=== PATIENT | female | born 1965 | race Caucasian/White ===

== ENCOUNTER 2023-11-16 11:15 | Inpatient (IN) | payer SELFPAY ==
[~2023-11-16] VITALS: Ht 160 cm; Wt 68.0 kg
[2023-11-16 11:18] VITALS: TEMP 36.55848; O2SAT 98
[2023-11-16 11:22] VITALS: BP 127/75; PULSE 115; RESP 40; O2SAT 100
[2023-11-16] MEDS ORDERED: HEPARIN 1000 UNITS/ML 10ML ONE (11:33)
[2023-11-16] MEDS ORDERED: LIDOCAINE HCL 1% 10 MG/ML 10ML VIAL ONE (11:33)
[2023-11-16] MEDS ORDERED: IODIXANOL 320 MG/ML 150ML BOTTLE IV ONE (11:33)
[2023-11-16] MEDS ORDERED: EPINEPHRINE 0.1MG/ML (1:10,000) 10ML SYR ONE ×4 (11:38→12:50)
[2023-11-16] MEDS ORDERED: LIDOCAINE HCL 1% 20ML VIAL ONE (11:44)
[2023-11-16] MEDS ORDERED: DOPAMINE 400MG/250ML PREMIX 250 ML IV ONE (11:59)
[2023-11-16] MEDS ORDERED: ASPIRIN 325MG TABLET PO ONE (12:15)
[2023-11-16] MEDS ORDERED: HEPARIN 5000 UNITS/ML VIAL IV ONE (12:15)
[2023-11-16] MEDS ORDERED: EPINEPHRINE 10 MG in SODIUM CHLORIDE 0.9% 250 ML IV PRN (12:30)
[2023-11-16] MEDS ORDERED: VASOPRESSIN 20 UNITS in SODIUM CHLORIDE 0.9% 100 ML IV PRN (12:30)
== END 2023-11-16 13:00 | DRG 190 ==
LOC: ER 11:15 → CVICU 12:39 → EDBEDREQTM 12:40 → EDBEDREQ 12:40
PROVIDERS: ADMIT Internal Medicine; ATTEND Internal Medicine
PROC: 5A12012 Performance of Cardiac Output, Single, Manual (ICD-10-PCS; principal; 2023-11-16)
PROC: 4A023N6 Measurement of Cardiac Sampling and Pressure, Right Heart, Percutaneous Approach (ICD-10-PCS; 2023-11-16)
PROC: B2111ZZ Fluoroscopy of Multiple Coronary Arteries using Low Osmolar Contrast (ICD-10-PCS; 2023-11-16)
DX: I21.19 ST elevation (STEMI) myocardial infarction involving other coronary artery of inferior wall (principal); E11.65 Type 2 diabetes mellitus with hyperglycemia
CPT/HCPCS: 82962; 93005; 93454; 99285; C1769; C1887; C1893; J1265; J1644; J3490; Q9967